=== PATIENT | male | born 1985 | race Caucasian/White ===

== ENCOUNTER 2018-04-23 19:00 | Emergency (ER) | payer SELFPAY ==
[~2018-04-23] VITALS: Ht 180.3 cm; Wt 104.3 kg
[2018-04-23 19:07] VITALS: Ht 180.3 cm; Wt 104.3 kg
[2018-04-23 20:11] LABS: BASOPHIL % 0.3 % (0-2); PLATELET COUNT 399 x10^3mcL (130-400); RED CELL DISTRIBUTION WIDTH 14.4 % (11.5-14.5)
[2018-04-23 20:17] LABS: CALCIUM 8.9 mg/dL (8.5-10.1); CARBON DIOXIDE 21.2 mmol/L (21-32); CHLORIDE SERUM 106 mmol/L (98-107); CREATININE SERUM 1.5 mg/dL (0.7-1.3); GFR1 58 mL/min; GLUCOSE SERUM 100 mg/dL (74-106); POTASSIUM SERUM 3.5 mmol/L (3.5-5.1); SODIUM SERUM 144 mmol/L (136-145)
[2018-04-23 20:22] LABS: ALBUMIN 4.4 g/dL (3.4-5.0); ALKALINE PHOSPHATASE 85 U/L (46-116); ALT/SGPT 62 U/L (16-63); AST/SGOT 83 U/L (15-37); BILIRUBIN TOTAL 0.46 mg/dL (0.20-1.00); CHOLESTEROL 192 mg/dL (<200)
[2018-04-23 20:24] LABS: TOTAL PROTEIN, SERUM 8.6 g/dL (6.4-8.2)
[2018-04-23 20:55] LABS: AMPHETAMINE QUAL UR POSITIVE (See below)
[2018-04-23 23:25] VITALS: BP 138/69
== END 2018-04-23 23:25 | disposition home or self-care (01) ==
LOC: ED 19:00
PROVIDERS: Specialist
DX: F10.129 Alcohol abuse with intoxication, unspecified (principal); F19.10 Other psychoactive substance abuse, uncomplicated
CPT/HCPCS: 83880; G0480; J7030; Q0092

== ENCOUNTER 2018-09-05 21:52 | Inpatient (IN) | payer SELFPAY ==
[~2018-09-05] VITALS: Ht 167.6 cm; Wt 103.9 kg
[2018-09-05 21:57] VITALS: Ht 167.6 cm; Wt 103.9 kg
[2018-09-05 22:55] LABS: microscopic required? NO
[2018-09-05 23:00] LABS: BASOPHIL % 0.6 % (0-2); PLATELET COUNT 312 x10^3mcL (130-400); RED CELL DISTRIBUTION WIDTH 14.3 % (11.5-14.5)
[2018-09-05 23:09] LABS: CALCIUM 9.5 mg/dL (8.5-10.1); CARBON DIOXIDE 21.2 mmol/L (21-32); CHLORIDE SERUM 98 mmol/L (98-107); CREATININE SERUM 0.8 mg/dL (0.7-1.3); GFR1 > 60 mL/min; GLUCOSE SERUM 105 mg/dL (74-106); POTASSIUM SERUM 4.5 mmol/L (3.5-5.1); SODIUM SERUM 133 mmol/L (136-145)
[2018-09-05 23:16] LABS: UA SPECIFIC GRAVITY <=1.005 (1.005-1.035); urine erythrocyte NEGATIVE (NEGATIVE)
[2018-09-05 23:22] LABS: ALBUMIN 4.3 g/dL (3.4-5.0); ALKALINE PHOSPHATASE 82 U/L (46-116); ALT/SGPT 57 U/L (16-63); AST/SGOT 43 U/L (15-37); BILIRUBIN TOTAL 0.53 mg/dL (0.20-1.00); FREE T4 0.96 ng/dL (0.76-1.46); LIPASE 132 IU/L (73-393); TOTAL PROTEIN, SERUM 7.9 g/dL (6.4-8.2)
[2018-09-05 23:24] LABS: AMPHETAMINE QUAL UR POSITIVE (See below)
[2018-09-06 03:50] VITALS: BP 137/91
[2018-09-06 04:27] LABS: CHOLESTEROL 199 mg/dL (<200); CHOLESTEROL/HDL RATIO 5.4; HDL CHOLESTEROL 37 mg/dL (40-60); MAGNESIUM 2.1 mg/dL (1.8-2.4); PHOSPHOROUS 5.9 mg/dL (2.5-4.9)
[2018-09-06 04:29] LABS: TRIGLYCERIDES 547 mg/dL (<150)
[2018-09-06 05:39] VITALS: BP 148/72
[2018-09-06 10:07] VITALS: BP 135/78
[2018-09-06] MEDS ORDERED: NATURE'S BLEND F1 MG PO (12:36)
[2018-09-06] MEDS ORDERED: THI100 PO (12:36)
[2018-09-06] MEDS ORDERED: THEM PO (12:40)
[2018-09-06 13:34] VITALS: BP 130/86
[2018-09-06 14:35] VITALS: BP 130/86
[2018-09-06] MEDS ORDERED: NIASPAN1000 MG PO (14:56)
== END 2018-09-06 17:03 | disposition home or self-care (01) | DRG 392 ==
LOC: ED 21:52 → DU 09-06 02:58
PROVIDERS: Emergency Medicine; Internal Medicine
DX: K52.9 Noninfective gastroenteritis and colitis, unspecified (principal); F17.210 Nicotine dependence, cigarettes, uncomplicated; E78.1 Pure hyperglyceridemia; Y90.0 Blood alcohol level of less than 20 mg/100 ml; F10.10 Alcohol abuse, uncomplicated; F15.90 Other stimulant use, unspecified, uncomplicated; Z23 Encounter for immunization
CPT/HCPCS: 84439; 90658; G0480; J2060; J2270; J2405; J7030; Q0092